=== PATIENT | male | born 1965 | race Caucasian/White ===

== ENCOUNTER 2016-11-25 17:50 | Emergency (ER) | payer OTHER ==
[~2016-11-25] VITALS: Ht 160 cm; Wt 83.2 kg
[~2016-11-25 17:50] MED LIST: ATEN50TA PO; ATOR40TA28 PO; FAMO20 PO; GLIP5 PO; METF500T4 PO
[2016-11-25 18:07] LABS: GLUCOSE,POINT OF CARE 119 MG/DL (70-110)
[2016-11-25 22:50] VITALS: BP 140/70
== END 2016-11-25 23:10 | disposition home or self-care (01) ==
LOC: EMS 17:54
DX: B07.0 Plantar wart (principal); E11.9 Type 2 diabetes mellitus without complications; L08.89 Other specified local infections of the skin and subcutaneous tissue; E78.00 Pure hypercholesterolemia, unspecified
CPT/HCPCS: 82962; 99284

== ENCOUNTER 2017-05-17 18:15 | Emergency (ER) | payer OTHER ==
[~2017-05-17] VITALS: Ht 160 cm; Wt 79.5 kg
[~2017-05-17 18:15] MED LIST changes: -FAMO20 PO
[2017-05-17 18:37] LABS: GLUCOSE,POINT OF CARE 131 MG/DL (70-110)
[2017-05-17] MEDS ORDERED: ACETAMINOPHEN/CODEINE 300-30 MG TABLET PO ONE (20:30)
[2017-05-17 21:38] VITALS: BP 147/83
== END 2017-05-17 21:42 | disposition home or self-care (01) ==
LOC: EMS 18:17
DX: M25.562 Pain in left knee (principal); E11.9 Type 2 diabetes mellitus without complications; E78.00 Pure hypercholesterolemia, unspecified; F41.9 Anxiety disorder, unspecified; I10 Essential (primary) hypertension
CPT/HCPCS: 82962; 99284

== ENCOUNTER 2018-02-18 22:49 | Emergency (ER) | payer OTHER ==
[~2018-02-18] VITALS: Ht 160 cm; Wt 78.2 kg
[~2018-02-18 22:49] MED LIST changes: -METF500T4 PO; +METF500T6 PO
[2018-02-18 23:04] LABS: GLUCOSE,POINT OF CARE 103 MG/DL (70-110)
[2018-02-18 23:50] LABS: BASOPHILS % (AUTO) 0.6 % (0.0-2.0); EOSINOPHILS % (AUTO) 4.7 % (1.0-6.0); HEMATOCRIT 34.6 % (41-53); HEMOGLOBIN 12.3 g/dL (13.5-17.5); LYMPHOCYTES # (AUTO) 3.1 K/uL (1.0-4.8); MEAN CORPUSCULAR HEMOGLOBIN 32.9 pg (26.0-34.0); MEAN CORPUSCULAR HGB CONC 35.6 G/dL (31.0-37.0); MEAN CORPUSCULAR VOLUME 93 fL (80-100); MONOCYTES # (AUTO) 0.8 K/uL (0.1-1.0); NEUTROPHILS # (AUTO) 5.2 K/uL (1.8-7.7); NEUTROPHILS % (AUTO) 54.7 % (40.0-70.0); PLATELET COUNT (AUTO) 243 K/uL (150-450); RED BLOOD CELL COUNT(AUTO) 3.75 MIL/uL (4.50-5.90); RED CELL DISTRIBUTION WIDTH 12.6 % (11.5-14.5)
[2018-02-19 00:10] LABS: AMPHET/METH SCREEN,URINE NEGATIVE (NEGATIVE); BARBITURATE SCREEN, URINE NEGATIVE (NEGATIVE); BENZODIAZEPINES SCREEN,URINE NEGATIVE (NEGATIVE); CANNABINOID SCREEN,URINE NEGATIVE (NEGATIVE); COCAINE SCREEN,URINE NEGATIVE (NEGATIVE); METHADONE SCREEN, URINE NEGATIVE (NEGATIVE); OPIATE SCREEN,URINE NEGATIVE (NEGATIVE); PHENCYCLIDINE SCREEN,URINE NEGATIVE (NEGATIVE)
[2018-02-19 00:16] LABS: APPEARANCE,URINE CLEAR (CLEAR); BILIRUBIN,URINE NEGATIVE (NEGATIVE); CALCIUM, TOTAL 8.2 mg/dL (8.8-10.5); CREATININE 4.57 mg/dL (0.60-1.30); GLUCOSE, URINE (UA) NEGATIVE (NEGATIVE); KETONES,URINE NEGATIVE (NEGATIVE); LEUKOCYTE ESTERASE ,URINE NEGATIVE (NEGATIVE); NITRATE,URINE NEGATIVE (NEGATIVE); OCCULT BLOOD,URINE SMALL (NEGATIVE); POTASSIUM 4.1 mmol/L (3.5-5.1); PROTEIN,URINE SEE CONFIRM (NEGATIVE); UROBILINOGEN,URINE 0.2 mg/dL (<=1.0)
[2018-02-19 00:22] LABS: ALBUMIN 3.5 g/dL (3.4-5.0); BILIRUBIN,TOTAL 0.2 mg/dL (0.1-1.0); TOTAL PROTEIN, SERUM 6.8 g/dL (6.4-8.2)
[2018-02-19 01:04] LABS: BACTERIA,URINE None Seen /HPF (None Seen); RBC,URINE 0-2 /HPF (0-2); SULFOSALICYLIC ACID,URINE 1+ (Negative); WBC,URINE None Seen /HPF (0-5)
[2018-02-19 02:14] LABS: CHLORIDE,URINE RANDOM 120 mmol/L (55-125); MAGNESIUM,URINE RANDOM 3.5 mg/dL (1.0-13.0); POTASSIUM,URINE RANDOM 13 mmol/L (12-75); PROTEIN,URINE RANDOM 129 mg/dL (0-11.9); SODIUM,URINE RANDOM 123 mmol/l (20-110)
[2018-02-19 02:19] LABS: GLUCOSE,POINT OF CARE 121 MG/DL (70-110)
[2018-02-19 02:38] LABS: OSMOLALITY,URINE 377 mOS/kg (50-1200)
[2018-02-19 05:13] VITALS: BP 165/102
== END 2018-02-19 05:31 | disposition short-term general hospital (02) ==
LOC: EMS 22:51
DX: N17.9 Acute kidney failure, unspecified (principal); I10 Essential (primary) hypertension; E11.9 Type 2 diabetes mellitus without complications; E78.00 Pure hypercholesterolemia, unspecified
CPT/HCPCS: 76770; 82340; 82436; 83735; 83935; 84105; 84133; 84156; 84300; 93005; 99285

== ENCOUNTER 2022-01-12 20:16 | Emergency (ER) | payer OTHER ==
[~2022-01-12] VITALS: Ht 162.6 cm; Wt 75.0 kg
[~2022-01-12 20:16] MED LIST changes: +ATEN-72 PO; -ATEN50TA PO; +B CO1CAP6 PO; -GLIP5 PO; +GLIP5TAB12 PO; +METF-1211 PO; -METF500T6 PO; +PHOSLOC PO
[2022-01-12 21:29] LABS: BASOPHILS % (AUTO) 0.5 % (0.0-2.0); EOSINOPHILS % (AUTO) 2.2 % (1.0-6.0); HEMATOCRIT 30.3 % (41-53); HEMOGLOBIN 10.7 g/dL (13.5-17.5); LYMPHOCYTES # (AUTO) 1.2 K/uL (1.0-4.8); LYMPHOCYTES % (AUTO) 13.5 % (22.0-44.0); MEAN CORPUSCULAR HEMOGLOBIN 32.2 pg (26.0-34.0); MEAN CORPUSCULAR HGB CONC 35.2 G/dL (31.0-37.0); MEAN CORPUSCULAR VOLUME 91 fL (80-100); MONOCYTES # (AUTO) 0.9 K/uL (0.1-1.0); MONOCYTES % (AUTO) 10.6 % (2.0-9.0); NEUTROPHILS # (AUTO) 6.5 K/uL (1.8-7.7); NEUTROPHILS % (AUTO) 73.2 % (40.0-70.0); PLATELET COUNT (AUTO) 224 K/uL (150-450); RED BLOOD CELL COUNT(AUTO) 3.32 MIL/uL (4.50-5.90); RED CELL DISTRIBUTION WIDTH 12.4 % (11.5-14.5)
[2022-01-12 21:39] LABS: CALCIUM, TOTAL 8.8 mg/dL (8.8-10.5); CREATININE 12.64 mg/dL (0.60-1.30); POTASSIUM 4.5 mmol/L (3.5-5.1)
[2022-01-12 21:47] LABS: BILIRUBIN,TOTAL 0.4 mg/dL (0.1-1.0)
[2022-01-12] MEDS ORDERED: VANCOMYCIN HCL 1.25 GM in DEXTROSE 5%-WATER 250 ML IV ONE (23:15)
[2022-01-12] MEDS ORDERED: PIPERACILLIN SODIUM/TAZOBACTAM 4.5 GM in DEXTROSE 5%-WATER 100 ML IV ONE (23:15)
[2022-01-13 00:19] LABS: COVID AG,FIA SOURCE NASOPHARYNGEAL
[2022-01-13 02:47] VITALS: BP 139/78
== END 2022-01-13 04:01 | disposition short-term general hospital (02) ==
LOC: EMS 20:29
DX: N49.2 Inflammatory disorders of scrotum (principal); N18.6 End stage renal disease; Z20.822 Contact with and (suspected) exposure to COVID-19
CPT/HCPCS: 36415; 76870; 80053; 85025; 87040; 87426; 96365; 96367; 99285; J2543; J3370; J7060 ×2

== ENCOUNTER 2022-02-28 13:58 | Emergency (ER) | payer OTHER ==
[~2022-02-28] VITALS: Ht 160 cm; Wt 68.6 kg
[2022-02-28 14:08] VITALS: BP 161/90
[2022-02-28 15:51] LABS: COVID AG,FIA SOURCE NASOPHARYNGEAL
== END 2022-02-28 16:35 | disposition home or self-care (01) ==
LOC: EMS 14:00
DX: N18.6 End stage renal disease (principal); Z20.822 Contact with and (suspected) exposure to COVID-19; J06.9 Acute upper respiratory infection, unspecified; Z99.2 Dependence on renal dialysis
CPT/HCPCS: 99283